=== PATIENT | female | born 1955 | race African-American/Black ===

== ENCOUNTER 2019-07-12 08:40 | Outpatient (CLI) | payer OTHER, SELFPAY ==
--- NOTE | ~2019-07-12 | MM_ITS ---
EXAMINATION: MM screening [facility] BI w hemant HISTORY: Screening mammogram TECHNIQUE: Craniocaudal and mediolateral oblique 3-D tomosynthesis images were obtained and synthetic 2-D images were generated. CAD analysis was submitted and interpreted. COMPARISON: Comparison to multiple prior studies sequentially, with oldest reviewed study dated 05/28. BREAST PARENCHYMAL COMPOSITION: There are scattered areas of fibroglandular density. FINDINGS: There is no evidence of suspicious mass, calcification, or architectural distortion to sugg est malignancy in either breast. There has been no suspicious interval change. IMPRESSION: 1. No mammographic evidence of malignancy. 2. Recommend routine screening mammography in one year. BI-RADS Category 1: Negative Reviewed, dictated and finalized at location A.
== END 2019-07-12 08:41 | disposition home or self-care (01) ==
LOC: ANHIMG 08:46
PROVIDERS: PCP Family Medicine Adolescent Medicine; Visit Provider Family Medicine Adolescent Medicine
DX: Z12.31 Encounter for screening mammogram for malignant neoplasm of breast (principal)
CPT/HCPCS: 77063; 77067

== ENCOUNTER 2020-07-11 09:01 | Outpatient (CLI) | payer OTHER, SELFPAY ==
--- NOTE | ~2020-07-11 | MM_ITS ---
EXAMINATION: MM screening [facility] BI w hemant HISTORY: Screening TECHNIQUE: Craniocaudal and mediolateral oblique 3-D tomosynthesis images were obtained and synthetic 2-D images were generated. CAD analysis was submitted and interpreted. COMPARISON: Comparison to multiple prior studies sequentially, with oldest reviewed study dated 05/28. BREAST PARENCHYMAL COMPOSITION: The breasts are heterogeneously dense, which may obscure small masses . FINDINGS: There is possible architectural distortion in the upper outer quadrant of the right breast, middle third. The left breast is stable without evidence for malignancy. IMPRESSION: 1. Possible new area of architectural distortion upper outer quadrant of the right breast, best seen on CC view. 2. Additional mammographic views and possible breast ultrasound are recommended. BI-RADS Category 0: Incomplete: Needs additional imaging evaluation. Reviewed, dictated and finalized at location A. IMPRESSION: 1. Possible new area of architectural distortion upper outer quadrant of the ri ght breast, best seen on CC view. 2. Additional mammographic views and possible breast ultrasound are recommended . BI-RADS Category 0: Incomplete: Needs additional imaging evaluation.
== END 2020-07-11 09:02 | disposition home or self-care (01) ==
PROVIDERS: PCP Family Medicine Adolescent Medicine; Visit Provider Family Medicine Adolescent Medicine
DX: Z12.31 Encounter for screening mammogram for malignant neoplasm of breast (principal); R92.8 Other abnormal and inconclusive findings on diagnostic imaging of breast
CPT/HCPCS: 77063; 77067

== ENCOUNTER 2020-08-14 11:33 | Outpatient (CLI) | payer OTHER, SELFPAY ==
--- NOTE | ~2020-08-14 | MMUS_ITS ---
EXAMINATION: MM diagnostic mammo unilat RT, US breast RT limited HISTORY: Possible right breast architectural distortion on screening mammogram TECHNIQUE: Additional 3-D tomosynthesis images of the right breast were performed and synthetic 2-D i mages were generated. CAD analysis was submitted and interpreted. High resolution limited right breas t ultrasound was performed. COMPARISON: 07/11/2020, 07/12/2019, 07/06/2018, 06/30/2017 BREAST PARENCHYMAL COMPOSITION: The breasts are heterogeneously dense, which may obscure small masses . FINDINGS: MAMMOGRAPHIC FINDINGS: There is a return to baseline glandular with spot compression of the upper outer quadrant of the righ t breast. No persistent architectural distortion is identified. ULTRASOUND: There is no evidence of focal abnormal solid or cystic mass in the vicinity of the mammographic findi ng in question. IMPRESSION: 1. No mammographic or sonographic evidence of malignancy. 2. Recommend routine screening mammography in one year. BI-RADS Category 1: Negative Reviewed, dictated and finalized at location A. IMPRESSION: 1. No mammographic or sonographic evidence of malignancy. 2. Recommend routine screening mammography in one year. BI-RADS Category 1: Negative
== END 2020-08-14 11:34 | disposition home or self-care (01) ==
PROVIDERS: PCP Family Medicine Adolescent Medicine; Visit Provider Family Medicine Adolescent Medicine
DX: R92.8 Other abnormal and inconclusive findings on diagnostic imaging of breast (principal)
CPT/HCPCS: 76642; 77065

== ENCOUNTER 2021-01-10 08:39 | Inpatient (IN) | payer OTHER, SELFPAY ==
[2021-01-10] VITALS (35 sets, daily range): BP systolic 90–115; BP diastolic 54–82; PULSE 72–100; RESP 18–35; TEMP 36.6–37.4; O2SAT 66–99; BMI 27.6
--- NOTE | ~2021-01-10 | XR_ITS ---
EXAMINATION: XR chest 2V EXAM DATE: 01/10/2021 10:32 INDICATION: Lethargic, weakness. TECHNIQUE: Frontal and lateral projections of the chest obtained and reviewed. There is no prior jennifer dy for comparison. FINDINGS: Diffuse bilateral airspace disease suspicious for COVID pneumonia. Other infectious etiolo gies, or edema also possible. There is cardiomegaly. No pneumothorax. No pleural effusion. There are no osseous abnormalities identified. IMPRESSION: Diffuse acute airspace disease, consistent with COVID pneumonia. Other infectious etiolog ies, or edema also possible. Reviewed, dictated and finalized at location B. IMPRESSION: Diffuse acute airspace disease, consistent with COVID pneumonia. Ot her infectious etiologies, or edema also possible.
--- NOTE | ~2021-01-10 | CT_ITS ---
EXAMINATION: CTA chest PE protocol EXAM DATE: 01/10/2021 10:20 INDICATION: Shortness of breath. Weakness. Pneumonia. TECHNIQUE: Spiral CTA of the chest (pulmonary arteries) was performed with 100 cc Omnipaque 350 intr avenous contrast injection. Images were acquired during the pulmonary arterial phase. Coronal maxi mum intensity projection 3D-reconstructions were created by the technologist on dedicated workstation . Axial, coronal and sagittal reformatted images were reviewed. The dose-length product (DLP) for t his examination was 274.48 mGy-cm. The exposure was tailored according to patient size (auto mA exp osure control), and iterative reconstruction (ASIR) was used as additional dose reduction technique. There is no prior study for comparison. FINDINGS: There are no pulmonary emboli in the 1st through 3rd order (central and interlobar) pulmon ying arteries. Some loss of attenuation in the segmental pulmonary arteries from respiratory motion, some segmental regions not confidently evaluated. No intraluminal filling defects identified. No th oracic aortic dissection. Bilateral patchy peripheral predominant groundglass opacities Appearance is typical of early stage C OVID 19 pneumonia. Less likely acute possibilities include influenza, pulmonary edema or hemorrhage. Some chronic processes that can have this appearance include cryptogenic organizing pneumonia, desqu amative interstitial pneumonia, nonspecific interstitial pneumonia, drug toxicity, connective tissue disease. Please clinically correlate and test as appropriate. There are no pleural or pericardial effusions. Tracheobronchial tree is patent. Mild hilar, preva scular lymphadenopathy probably reactive. There is no pneumothorax. Borderline cardiomegaly. No e vidence of coronary arterial calcification. Upper abdomen is unremarkable. There is thoracic spond ylosis without osteoblastic or osteolytic lesions identified. IMPRESSION: 1. Patchy bilateral groundglass airspace disease probably COVID 19 pneumonia given community prevale nce. Other possibilities above. 2. No central pulmonary emboli. Segmental arteries poorly evaluated. Reviewed, dictated and finalized at location B. IMPRESSION: 1. Patchy bilateral groundglass airspace disease probably COVID 19 pneumonia g iven community prevalence. Other possibilities above. 2. No central pulmonary emboli. Segmental arteries poorly evaluated.
--- NOTE | 2021-01-10 08:54 | ECG_ITS ---
Measurements Intervals [place] Rate: 95 P: 54 [place]: 143 QRS: 30 QRSD: 87 T: -13 QT: 358 QTc: 450 Interpretive Statements SINUS RHYTHM NONSPECIFIC ST & T-WAVE ABNORMALITY- ANTEROLAT/INF LEADS BASELINE ARTIFACT- I, II, III, AVR, AVL, AVF, V3-V6 BORDERLINE ECG Electronically Signed On 01-10-2021 9:15:32 CDT by Josh Garsia D.O.
--- NOTE | 2021-01-10 09:05 | PC.NURSE ---
Patient placed on 4L oxygen at time of arrival due to patient's oxygen stat at 78% on room air. After 4L oxygen patient is improved to 89%. Respiratory called at this time.
[2021-01-10 09:19] LABS: Basophils Percent Auto 0.1 % (0.2-1.2); Hematocrit 39.8 % (37.0-47.0); Immature Granulocyte Absolute 0.07 K/mm3 (0.00-0.031); Immature Granulocyte Percent A 0.9 % (0-0.5); Lymphocytes Absolute Auto 0.57 K/mm3 (0.9-3.2); Lymphocytes Percent Auto 7.5 % (18.3-44.2); Mean Corpuscular HGB Conc 32.7 g/dl (32-36); Mean Corpuscular Hemoglobin 26.1 pg (26-34); Mean Corpuscular Volume 79.8 fl (80-100); Mean Platelet Volume 10.6 fl (7.4-10.4); Monocytes Absolute Auto 0.4 K/mm3 (0.1-0.6); Monocytes Percent Auto 4.9 % (2.6-8.5); Neutrophils Absolute Auto 6.6 K/mm3 (1.3-6.7); Neutrophils Percent Auto 86.6 % (45.5-73.1); Platelet Count Result 332 k/mm3 (150-375); Red Blood Count 4.99 M/mm3 (4.2-5.4); Red Cell Distribution Width 14.4 % (11.5-14.5); White Blood Count 7.6 K/mm3 (4.5-10.0)
[2021-01-10 09:21] LABS: Alveolar/Arterial O2 Gradient 201.3 mmHg; Base Excess ABG 1.3 mEq/l (+/-2.0); Carboxyhemoglobin 0.4 % THb (0-2.0); Fractional Inspired Oxygen 40 %; HCO3 ABG 23.5 mEq/l (22.0-26.0); Methemoglobin ABG 0.4 %THb (0-1.5); Oxygen Content ABG 15.4 %vol (16.0-22.0); Oxygen Saturation ABG 89.1 % (95.0-100.0); Oxyhemoglobin 85.1 % THb (90.0-100.0); PCO2 ABG 29.9 mmHg (35.0-45.0); PO2 FiO2 Ratio Arterial Blood 1.24 %; Reduced Hemoglobin 14.1 %THb (0-5.0); Total Hemoglobin 12.9 g/dL (12.0-18.0)
[2021-01-10 09:22] LABS: Device NASAL CANNULA; Modified Allen's Test Pass; PO2 ABG 49.5 mmHg (80.0-100.0); Site Drawn LEFT RADIAL; pH ABG 7.513 (7.350-7.450)
[2021-01-10 09:28] LABS: Lactic Acid Reflex 2.2 mmol/L (0.7-2.1)
[2021-01-10 09:32] LABS: Prothrombin Time 12.6 Seconds (11.1-14.7)
[2021-01-10 09:35] LABS: D Dimer 1.16 ug/mL (<0.48)
[2021-01-10 09:36] LABS: Alanine Aminotransferase 42 U/L (4-35); Albumin Level 3.9 g/dL (3.5-5.1); Alkaline Phosphatase 76 U/L (38-126); Anion Gap 16 mmol/L (8-16); Aspartate Amino Transferase 70 U/L (14-36); Bilirubin,Total 0.8 mg/dL (0.2-1.3); Blood Urea Nitrogen 15 mg/dL (7-17); Calcium 8.5 mg/dL (8.4-10.2); Carbon Dioxide 22 mmol/L (22-30); Chloride 101 mmol/L (98-107); Estimated CRCL calculation 55 ml/min; Estimated Glomerular Filt Rate > 60; Glucose 134 mg/dL (65-110); Potassium 2.8 mmol/L (3.4-5.0); Sodium 139 mmol/L (137-145)
--- NOTE | 2021-01-10 09:46 | PC.NURSE ---
pt continues to deny pain or complaints.
[2021-01-10 10:09] LABS: Add Urine Microscopic? YES; Appearance Urine Clear (Clear); Bacteria Urine Trace /hpf; Bilirubin Urine Negative (Negative); Blood Urine Negative (Negative); Color Urine Yellow (Yellow); Glucose Urine UA Negative (Negative); Ketones Urine 1+ mg/dL (Negative); Leukocyte Esterase Ur Negative LEU/UL (Negative); Mucus Urine Rare /lpf; Nitrate Urine Negative (Negative); Protein Urine 2+ mg/dL (Negative); Specific Grav Ur 1.027 (1.001-1.035); Squamous Epithelial Cell Urine Rare /hpf (Few)
--- NOTE | 2021-01-10 10:53 | ED.WEAKNESS ---
HPI - Weakness General Chief complaint: Weakness Stated complaint: altered mental status Time Seen by Provider: 01/10/21 09:37 Source: patient and RN notes reviewed Mode of arrival: ambulatory Limitations: no limitations History of Present Illness HPI Narrative: Patient is 65 years old -Citizen Of [place] female lives with her son brought to the emergency room by her family because they noticed that the patient been weak, lethargic, sleeps longer hours over the last 7 days. Patient works at [employer], not vaccinated for COVID-19. Patient is DNR. Patient does not smoke or drink or uses drugs Related Data Allergies Allergy/AdvReac Type Severity Reaction Status Date / Time No Known Allergies Allergy Verified 01/10/21 09:06 Review of Systems Review of Systems: CONSTITUTIONAL: Denies fever, chills, or sweats. EYES: Denies visual changes, redness, or discharge. ENT: Denies rhinorrhea, congestion, sore throat, or otalgia. CARDIOVASCULAR: Denies chest pain, palpitations, or edema. RESPIRATORY: Denies cough or dyspnea. GASTROINTESTINAL: Denies abdominal pain, nausea, vomiting, or diarrhea. GENITOURINARY: Denies dysuria or hematuria. SKIN: Denies rash or itching. MUSCULOSKELETAL: Denies back pain, joint pain, or myalgia. NEUROLOGIC: Denies headache, numbness, or weakness. PSYCHIATRIC: Denies anxiety or depression. Exam Narrative: General appearance: Well-developed, well-nourished, hearing impairment Skin: Normal color Head: Normocephalic, nontraumatic Eyes: Clear conjunctiva ENT: Oropharynx normal, ears normal, nose normal Neck: Supple, nontender Chest and respiratory: Airway patent, no respiratory distress, no accessory muscle use Heart: Regular rate/rhythm Abdomen: Soft, nontender, no organomegaly, quiet bowel sounds Vascular: Normal peripheral pulses, normal capillary refill. Musculoskeletal: Normal range of motion, nontender back Neurologic: Alert and oriented ?3, [employer] is normal as tested, no gross motor deficit Course Course Emergency Course: Stable Vital Signs Vital signs: Vital Signs Temperature 36.6 C 01/10/21 08:48 Pulse Rate 100 01/10/21 08:48 Respiratory Rate 26 H 01/10/21 08:48 Blood Pressure 112/72 01/10/21 08:48 Pulse Oximetry 78 L 01/10/21 08:48 Temperature 36.6 C 01/10/21 08:48 Pulse Rate 100 01/10/21 08:48 Respiratory Rate 26 H 01/10/21 08:48 Blood Pressure 112/72 01/10/21 08:48 Pulse Oximetry 78 L 01/10/21 08:48 MDM - Weakness MDM Narrative Medical decision making narrative: Covid infection is my concern. Work-up showed elevated D-dimer, hypokalemia, lung infiltration bilaterally. Admission to telemetry, isolation ordered Differential Diagnosis Differential diagnosis: Likely dehydration and other (Pneumonia, urinary tract infection, electrolyte imbalance) Lab Data Result diagrams: 01/10/21 09:06 01/10/21 09:06 Labs: Lab Results 01/10/21 01/10/21 01/10/21 Range/Units 09:06 09:06 09:06 WBC 7.6 (4.5-10.0) K/mm3 RBC 4.99 (4.2-5.4) M/mm3 Hgb 13.0 (12.0-15.0) g/dL Hct 39.8 (37.0-47.0) % MCV 79.8 L (80-100) fl MCH 26.1 (26-34) pg MCHC 32.7 (32-36) g/dl RDW 14.4 (11.5-14.5) % Plt Count 332 (150-375) k/mm3 MPV 10.6 H (7.4-10.4) fl Immature Gran % (Auto) 0.9 H (0-0.5) % Neut % (Auto) 86.6 H (45.5-73.1) % Lymph % (Auto) 7.5 L (18.3-44.2) % Rankin % (Auto) 4.9 (2.6-8.5) % Eos % (Auto) 0.0 (0-4.4) % Baso % (Auto) 0.1 L (0.2-1.2) % Lymph # (Auto) 0.57 L (0.9-3.2) K/mm3 Rankin # (Auto) 0.4 (0.1-0.6) K/mm3 Eos # (Auto) 0.0 (0-0.3) K/mm3 Baso # (Auto) 0.0 (0.0-0.1) K/mm3 Abs
[2021-01-10 12:13] LABS: Reflex Lactic Acid Yes or No Add Lactic
[2021-01-10 16:25] LABS: Lactic Acid 1.4 mmol/L (0.7-2.1)
--- NOTE | 2021-01-10 18:28 | PC.NURSE ---
1810 PT RECEIVED TO ROOM AT 1630. ROOM ORIENTATION GIVEN
--- NOTE | 2021-01-10 18:35 | PM.IMHP ---
H&P: HPI History of Present Illness Date/Time: 01/10/21 18:35 this is a 65-year-old female patient who lives with her son she was brought to the emergency room today because they noticed that she was weak, lethargic and sleepy. This has occurred for the last 7 days. The patient is very hard of hearing and it is difficult to communicate with her as she forgot to bring her hearing aids with her. The patient works at [employer] and has not been vaccinated for COVID-19. The patient is listed as a DNR. Patient's potassium was noted to be 2.8. Lactic was 2.2 and is now 1.4. AST is slightly elevated to 70 and ALT 42. Arterial blood gases pH 7.513, CO2 29.9, PO2 49.5 O2 saturation 89.1. Chest x-ray was read as diffuse acute airspace disease consistent with COVID pneumonia. CTA was read as patchy bilateral ground-glass opacities probably COVID-19 pneumonia. No central pulmonary emboli segmental arteries poorly evaluated. The patient was started on a azithromycin Rocephin in the emergency room. Patient's COVID PCR is pending. It was very difficult to obtain information from the patient she did not bring her hearing aid. She tells me that she only has a history of high blood pressure and is taking blood pressure medicine. She has had no surgical history. Patient is being admitted to inpatient services on the date of service of 01/10/2021. Chief Complaint: Weakness and fatigue Review of Systems Review of Systems: All systems reviewed & are unremarkable except as noted in HPI and below Constitutional: Constitutional: Reports as per HPI and Reports no additional constitutional complaints Eyes: Eyes: Reports as per HPI and Reports no additional eye complaints ENT: Reports system reviewed and no additional complaints, except as documented and Reports Normal hearing present Cardiovascular: Cardiovascular: Reports no additional cardiovascular complaints Respiratory: Respiratory: Reports no additional respiratory complaints and Reports no additional respiratory complaints Gastrointestinal: Gastrointestinal: Reports as per HPI and Reports no additional gastrointestinal complaints Musculoskeletal: Musculoskeletal: Reports no additional musculoskeletal complaints Integumentary/Breasts: Skin/Breast: Reports system reviewed and no additional complaints, except as docu and Reports as per HPI Neurologic: Reports system reviewed and no additional complaints, except as documented, Reports as per HPI and Reports Normal hearing present Psychiatric: Psychiatric: Reports no additional psychiatric complaints and Reports as per HPI Endocrine: Endocrine: Reports no additional endocrine complaints Hematologic/Lymphatic: Hematologic/Lymphatic: Reports no additional hematologic/lymphatic complaints Allergic/Immunologic: Allergic/Immunologic: Reports no additional allergic/immunologic complaints [facility] Past Medical History Medical History (Updated 01/10/21 @ 18:55 by Alisa Valenzuela NP) Hypertension Surgical History Surgical History (Updated 01/10/21 @ 18:48 by Alisa Valenzuela NP) No pertinent past surgical history Family History Family History (Updated 01/10/21 @ 18:50 by Alisa Valenzuela NP) Father Leukemia Mother Heart disease Social History Social History (Updated 01/10/21 @ 18:50 by Alisa Valenzuela NP) Social History: The patient lives with her son and she states the son is a durable power trust and estates attorney for healthcare. The patient is listed as a DNR. She has 2 children. She currently works at [employer]. She is a former smoker. She said she used to drink alcohol but she does not anymore. She is listed as single. Smoking packs per day: 2 Smoking cigarettes per day: 40.0 Years smoked: 20 Smoking pack-years: 40.00 Smoking status: Former smoker Tobacco type: cigarettes Alcohol intake: never Substance use: never Spiritual care concerns: No Meds Home Medications and Allergies Home Medications Medication
[2021-01-10 19:44] LABS: Alanine Aminotransferase 40 U/L (4-35); Estimated CRCL calculation 69 ml/min; Estimated Glomerular Filt Rate > 60
[2021-01-10 19:47] LABS: Anion Gap 11 mmol/L (8-16); Blood Urea Nitrogen 12 mg/dL (7-17); Calcium 8.3 mg/dL (8.4-10.2); Carbon Dioxide 25 mmol/L (22-30); Chloride 102 mmol/L (98-107); Estimated CRCL calculation 69 ml/min; Estimated Glomerular Filt Rate > 60; Glucose 143 mg/dL (65-110); Potassium 2.7 mmol/L (3.4-5.0); Sodium 138 mmol/L (137-145)
[2021-01-10] MEDS: POTASSIUM CHLORIDE 20 MEQ TABLET 40 MEQ PO (20:17)
[2021-01-10 20:30] LABS: INR 0.9; Prothrombin Time 12.1 Seconds (11.1-14.7)
[2021-01-10 22:41] LABS: SARS-CoV-2 RNA PCR Positive
[2021-01-11] VITALS (20 sets, daily range): BP systolic 93–116; BP diastolic 50–69; PULSE 57–87; RESP 18–32; TEMP 36.4–37.7; O2SAT 89–100
--- NOTE | 2021-01-11 01:04 | PC.NURSE ---
This patient, Courtney Page, was received from [facility] on 01/11/21 at 0045. Patient/family oriented to unit policies and routines
--- NOTE | 2021-01-11 01:48 | PC.NURSE ---
Patient was on 4L sating 71% at 1952. Increased oxygen to 10L, oxygen did improve to 91% and patient was turned on her right side. Notified Alisa Valenzuela of pt. increase oxygen needed. Rechecked pt. oxygen at 1220 and oxygen was 83%. Increased oxygen to 15L high flow nasal canula. Oxygen saturation only improved to 84%. Placed a non-rebreather on the pt. and did maximo her oxygen to 91%. Notified Alisa Valenzuela and orders were to transfer the pt. to imu with possibility of airvo. Report was given. Sister was notified of pt. status. When talking to the pt. about her wishes to be a DNR. Pt. then said she would like us to do everything possible to keep her alive. Educated pt. on what that a full code status was, Carri Casanova was present.
[2021-01-11] MEDS: REMDESIVIR 200 MG/NS 250 ML 200 MG/250 ML BAG 250 MG IVPB (01:55)
[2021-01-11 02:08] LABS: Alanine Aminotransferase 37 U/L (4-35); Estimated CRCL calculation 69 ml/min; Estimated Glomerular Filt Rate > 60
[2021-01-11 02:11] LABS: INR 0.9; Prothrombin Time 12.3 Seconds (11.1-14.7)
[2021-01-11] MEDS: amLODIPine BESYLATE 5 MG TABLET 10 MG PO (08:43)
[2021-01-11] MEDS: ENOXAPARIN 40 MG/0.4 ML SYRINGE SUB-Q (08:43)
[2021-01-11 08:52] LABS: Basophils Percent Auto 0.2 % (0.2-1.2); Eosinophils Absolute Auto 0.1 K/mm3 (0-0.3); Eosinophils Percent Auto 1.9 % (0-4.4); Hematocrit 33.1 % (37.0-47.0); Hemoglobin 10.5 g/dL (12.0-15.0); Immature Granulocyte Absolute 0.07 K/mm3 (0.00-0.031); Immature Granulocyte Percent A 1.5 % (0-0.5); Lymphocytes Absolute Auto 0.77 K/mm3 (0.9-3.2); Lymphocytes Percent Auto 16.1 % (18.3-44.2); Mean Corpuscular HGB Conc 31.7 g/dl (32-36); Mean Corpuscular Hemoglobin 25.1 pg (26-34); Mean Platelet Volume 10.5 fl (7.4-10.4); Monocytes Absolute Auto 0.2 K/mm3 (0.1-0.6); Monocytes Percent Auto 4.4 % (2.6-8.5); Neutrophils Absolute Auto 3.6 K/mm3 (1.3-6.7); Neutrophils Percent Auto 75.9 % (45.5-73.1); Platelet Count Result 329 k/mm3 (150-375); Red Blood Count 4.19 M/mm3 (4.2-5.4); Red Cell Distribution Width 14.4 % (11.5-14.5); White Blood Count 4.8 K/mm3 (4.5-10.0)
[2021-01-11 09:07] LABS: Lactic Acid Reflex 0.9 mmol/L (0.7-2.1)
[2021-01-11 09:21] LABS: Prothrombin Time 12.8 Seconds (11.1-14.7)
[2021-01-11 09:28] LABS: Alanine Aminotransferase 33 U/L (4-35); Anion Gap 9 mmol/L (8-16); Blood Urea Nitrogen 9 mg/dL (7-17); CRP 6.8 mg/dL (<1.0); Calcium 8.3 mg/dL (8.4-10.2); Carbon Dioxide 26 mmol/L (22-30); Chloride 103 mmol/L (98-107); Estimated CRCL calculation 79 ml/min; Estimated Glomerular Filt Rate > 60; Glucose 136 mg/dL (65-110); Lactate Dehydrogenase 1516 U/L (313-618); Magnesium 2.2 mg/dL (1.6-2.3); Potassium 3.8 mmol/L (3.4-5.0); Sodium 138 mmol/L (137-145)
[2021-01-11 11:02] LABS: Hypochromasia 1+ (NORMAL); Platelet Estimate Adequate (Adequate)
[2021-01-11 11:03] LABS: Anisocytosis 1+ (NORMAL); Poikilocytosis 1+ (NORMAL)
--- NOTE | 2021-01-11 16:08 | PM.IMPN ---
Progress Note: A&P Assessment and Plan (1) Pneumonia: Qualifiers: Laterality: bilateral Lung location: lower lobe of lung Pneumonia type: due to unspecified organism Qualified Code(s): J18.9 - Pneumonia, unspecified organism Code(s): J18.9 - Pneumonia, unspecified organism Status: Acute Assessment and Plan: azithromycin Rocephin. COVID-19 positive Albuterol inhaler in oxygen as required. DNR does not want to be placed on a ventilator. Blood cultures no growth today Supportive care (2) Suspected COVID-19 virus infection: Code(s): Z20.822 - Contact with and (suspected) exposure to COVID-19 Status: Acute Assessment and Plan: contact and droplet isolation. Decadron and remdesivir Consider tocilizumab once Airvo and supplemental oxygen Wean supplemental oxygen to maintain O2 saturation >92% Albuterol nebs (3) Hypertension: Code(s): I10 - Essential (primary) hypertension Status: Chronic Assessment and Plan: Current blood pressure 105/53 Continue home medication of amlodipine Trend blood pressure Adjust medications as needed (4) Acute hypokalemia: Code(s): E87.6 - Hypokalemia Status: Acute Assessment and Plan: Potassium on arrival was 2.8 Patient given supplemental potassium Repeat potassium 4.0 Replace as needed Trend potassium Subjective Date/time seen: 01/11/21 16:08 Interval history: Patient is a 65-year-old female who is here for COVID-19. Patient seemed a little lethargic today upon interview. However patient said she was doing fine. Patient denies having a lack of appetite and this stating she is hungry. Patient denies chest pain and shortness of breath. I was able to titrate patient down a little bit however shortly after she was titrated back up. Nursing reported the patient was satting 97% on 30 L and 70%. Patient is extremely hard of hearing and would not answer a lot of questions due to that. She does seem comfortable in bed with no work of breathing noted. Review of Systems Review of Systems: All systems reviewed & are unremarkable except as noted in HPI and below Exam Const: General: cooperative, comfortable, no acute distress, well developed and ill appearing Orientation/consciousness: oriented to person and oriented to place Other: Very lethargic HENMT: Head: normal to inspection, No palpable skull fracture present, normocephalic and atraumatic Ears: external ears normal and hearing grossly impaired General nose exam: Normal external nose present and Normal nares present Eyes: General: appearance normal, both eyes and all related structures Alignment and Position: alignment normal Periorbital: periorbital findings normal Eyelids: eyelids normal Conjunctivae: conjunctivae normal Sclera: sclerae normal Cornea: corneas normal Pupils: Equal, round and reactive pupils present EOM: EOMs intact bilaterally Neck: Neck: normal visual inspection, full ROM and supple Chest: Chest palpation & inspection: normal inspection of the chest Resp: Effort & Inspection: normal respiratory effort Auscultation: diminished lung sounds Percussion: percussion normal Cardio: Palpation: normal PMI Rate: regular rate Rhythm: regular rhythm Heart sounds: S1 normal heart sound present and S2 normal heart sound present Peripheral pulses: Peripheral pulses 2+ throughout GI: Inspection: normal to inspection Auscultation: normal bowel sounds Rectal Exam: deferred Skin: General skin exam: normal color Lesions: no lesions Rashes: no rashes Trauma: no lacerations or abrasions Wounds: no wounds Hair: normal Nails: normal Neuro: General: oriented to person and oriented to place Cranial nerves: Yes Equal, round and reactive pupils present and Yes hard of hearing Cognition (Neuro): normal cognition Speech: normal speech Extrem: General: normal to inspection Right up
[2021-01-11] MEDS: REMDESIVIR 100 MG/NS 250 ML 100 MG/250 ML BAG 250 MG IVPB (21:23)
[2021-01-12] VITALS (21 sets, daily range): BP systolic 92–110; BP diastolic 52–75; PULSE 50–77; RESP 18–24; TEMP 36.1–37.1; O2SAT 87–98
[2021-01-12 06:15] LABS: Basophils Percent Auto 0.2 % (0.2-1.2); Eosinophils Percent Auto 0.2 % (0-4.4); Immature Granulocyte Percent A 2.2 % (0-0.5); Lymphocytes Absolute Auto 0.77 K/mm3 (0.9-3.2); Lymphocytes Percent Auto 16.6 % (18.3-44.2); Mean Corpuscular HGB Conc 32.4 g/dl (32-36); Mean Corpuscular Hemoglobin 25.6 pg (26-34); Mean Corpuscular Volume 78.9 fl (80-100); Mean Platelet Volume 10.5 fl (7.4-10.4); Monocytes Absolute Auto 0.3 K/mm3 (0.1-0.6); Monocytes Percent Auto 7.1 % (2.6-8.5); Neutrophils Absolute Auto 3.4 K/mm3 (1.3-6.7); Neutrophils Percent Auto 73.7 % (45.5-73.1); Platelet Count Result 396 k/mm3 (150-375); Red Blood Count 4.69 M/mm3 (4.2-5.4); Red Cell Distribution Width 14.2 % (11.5-14.5); White Blood Count 4.7 K/mm3 (4.5-10.0)
[2021-01-12 06:23] LABS: INR 1.1; Prothrombin Time 13.8 Seconds (11.1-14.7)
[2021-01-12 06:42] LABS: Alanine Aminotransferase 34 U/L (4-35); Albumin Level 3.3 g/dL (3.5-5.1); Alkaline Phosphatase 64 U/L (38-126); Anion Gap 8 mmol/L (8-16); Aspartate Amino Transferase 37 U/L (14-36); Bilirubin,Total 0.4 mg/dL (0.2-1.3); Blood Urea Nitrogen 13 mg/dL (7-17); Calcium 8.7 mg/dL (8.4-10.2); Carbon Dioxide 28 mmol/L (22-30); Chloride 105 mmol/L (98-107); Estimated CRCL calculation 79 ml/min; Estimated Glomerular Filt Rate > 60; Glucose 125 mg/dL (65-110); Magnesium 2.3 mg/dL (1.6-2.3); Potassium 3.6 mmol/L (3.4-5.0); Sodium 141 mmol/L (137-145)
[2021-01-12] MEDS: ENOXAPARIN 40 MG/0.4 ML SYRINGE SUB-Q (08:28)
[2021-01-12] MEDS: amLODIPine BESYLATE 5 MG TABLET 10 MG PO (08:28)
--- NOTE | 2021-01-12 10:17 | PM.IMPN ---
Progress Note: A&P Assessment and Plan (1) Pneumonia: Qualifiers: Laterality: bilateral Lung location: lower lobe of lung Pneumonia type: due to unspecified organism Qualified Code(s): J18.9 - Pneumonia, unspecified organism Code(s): J18.9 - Pneumonia, unspecified organism Status: Acute Assessment and Plan: azithromycin Rocephin continued at this time COVID-19 positive Albuterol inhaler in oxygen as required. She stated today that she wanted everything done if needed Blood cultures no growth today Supportive care encouraged prone position Inflammatory labs elevated LDH 1516, CRP 6.8 PT/OT (2) Suspected COVID-19 virus infection: Code(s): Z20.822 - Contact with and (suspected) exposure to COVID-19 Status: Acute Assessment and Plan: contact and droplet isolation. Decadron and remdesivir tocilizumab given 01/11/21 Airvo and supplemental oxygen Wean supplemental oxygen to maintain O2 saturation >92% Albuterol nebs (3) Hypertension: Code(s): I10 - Essential (primary) hypertension Status: Chronic Assessment and Plan: Current blood pressure 110/60 Continue home medication of amlodipine Trend blood pressure Adjust medications as needed (4) Acute hypokalemia: Code(s): E87.6 - Hypokalemia Status: Acute Assessment and Plan: Potassium on arrival was 2.8 Patient given supplemental potassium Potassium today 3.6 Replace as needed Trend potassium Subjective Date/time seen: 01/12/21 07:15 Interval history: Patient is a 65 year old female who is here for COVID 19. She stated that she feels great today. Talked to her about getting up out of bed. She stated that she would like. She denies chest pain, shortness of breath, nausea, vomiting, weakness, fatigue, fevers, sweats, or chills. She was alert and up this morning upon arrival. She also looks good as well. She denies any work of breathing. Review of Systems Review of Systems: All systems reviewed & are unremarkable except as noted in HPI and below Exam Const: General: cooperative, comfortable, no acute distress and well developed Orientation/consciousness: oriented to person and oriented to place Other: Very lethargic HENMT: Head: normal to inspection, No palpable skull fracture present, normocephalic and atraumatic Ears: external ears normal and hearing grossly impaired General nose exam: Normal external nose present and Normal nares present Eyes: General: appearance normal, both eyes and all related structures Alignment and Position: alignment normal Periorbital: periorbital findings normal Eyelids: eyelids normal Conjunctivae: conjunctivae normal Sclera: sclerae normal Cornea: corneas normal Pupils: Equal, round and reactive pupils present EOM: EOMs intact bilaterally Neck: Neck: normal visual inspection, full ROM and supple Chest: Chest palpation & inspection: normal inspection of the chest Resp: Effort & Inspection: normal respiratory effort Auscultation: diminished lung sounds Percussion: percussion normal Cardio: Palpation: normal PMI Rate: regular rate Rhythm: regular rhythm Heart sounds: S1 normal heart sound present and S2 normal heart sound present Peripheral pulses: Peripheral pulses 2+ throughout GI: Inspection: normal to inspection Auscultation: normal bowel sounds Rectal Exam: deferred Skin: General skin exam: normal color Lesions: no lesions Rashes: no rashes Trauma: no lacerations or abrasions Wounds: no wounds Hair: normal Nails: normal Neuro: General: oriented to person and oriented to place Cranial nerves: Yes Equal, round and reactive pupils present and Yes hard of hearing Cognition (Neuro): normal cognition Speech: normal speech Extrem: General: normal to inspection Right upper extremity: normal to inspection Left upper extremity: normal to inspection Right lower extremity: no
[2021-01-12 12:37] LABS: Platelet Estimate Adequate (Adequate)
[2021-01-12 12:39] LABS: Poikilocytosis 1+ (NORMAL); Schistocytes 1+ (NORMAL)
[2021-01-12] MEDS: REMDESIVIR 100 MG/NS 250 ML 100 MG/250 ML BAG 250 MG IVPB (21:39)
[2021-01-13] VITALS (19 sets, daily range): BP systolic 92–117; BP diastolic 50–64; PULSE 48–75; RESP 20–23; TEMP 35.6–36.4; O2SAT 92–100
[2021-01-13 06:04] LABS: Basophils Percent Auto 0.4 % (0.2-1.2); Eosinophils Percent Auto 0.1 % (0-4.4); Hematocrit 42.7 % (37.0-47.0); Immature Granulocyte Absolute 0.23 K/mm3 (0.00-0.031); Immature Granulocyte Percent A 3.2 % (0-0.5); Lymphocytes Absolute Auto 1.04 K/mm3 (0.9-3.2); Lymphocytes Percent Auto 14.5 % (18.3-44.2); Mean Corpuscular HGB Conc 32.8 g/dl (32-36); Mean Corpuscular Hemoglobin 25.5 pg (26-34); Mean Corpuscular Volume 77.6 fl (80-100); Mean Platelet Volume 9.8 fl (7.4-10.4); Monocytes Absolute Auto 0.5 K/mm3 (0.1-0.6); Monocytes Percent Auto 6.3 % (2.6-8.5); Neutrophils Absolute Auto 5.4 K/mm3 (1.3-6.7); Neutrophils Percent Auto 75.5 % (45.5-73.1); Platelet Count Result 493 k/mm3 (150-375); Red Cell Distribution Width 14.3 % (11.5-14.5); White Blood Count 7.2 K/mm3 (4.5-10.0)
[2021-01-13 06:14] LABS: INR 1.1; Prothrombin Time 13.6 Seconds (11.1-14.7)
[2021-01-13 06:15] LABS: Alanine Aminotransferase 34 U/L (4-35); Albumin Level 3.5 g/dL (3.5-5.1); Alkaline Phosphatase 69 U/L (38-126); Anion Gap 8 mmol/L (8-16); Aspartate Amino Transferase 36 U/L (14-36); Bilirubin,Total 0.5 mg/dL (0.2-1.3); Blood Urea Nitrogen 18 mg/dL (7-17); Calcium 8.8 mg/dL (8.4-10.2); Carbon Dioxide 29 mmol/L (22-30); Chloride 104 mmol/L (98-107); Estimated CRCL calculation 79 ml/min; Estimated Glomerular Filt Rate > 60; Glucose 145 mg/dL (65-110); Magnesium 2.3 mg/dL (1.6-2.3); Potassium 3.7 mmol/L (3.4-5.0); Sodium 141 mmol/L (137-145)
[2021-01-13] MEDS: ENOXAPARIN 40 MG/0.4 ML SYRINGE SUB-Q (09:08)
--- NOTE | 2021-01-13 15:52 | PM.IMPN ---
Progress Note: A&P Assessment and Plan (1) Suspected COVID-19 virus infection: Code(s): Z20.822 - Contact with and (suspected) exposure to COVID-19 Status: Acute Assessment and Plan: COVID-19 positive Albuterol inhaler and oxygen supplementation as required. contact and droplet isolation. Decadron and remdesivir tocilizumab given 01/11/21 Airvo and supplemental oxygen as needed. Patient is a FULL CODE Blood cultures no growth to date. Supportive care PT/OT (2) Hypertension: Code(s): I10 - Essential (primary) hypertension Status: Chronic Assessment and Plan: Current blood pressure 93/60 hold bP meds while hypotensive Given acute ilness target BP goal of 140/90 (3) Pneumonia: Qualifiers: Laterality: bilateral Lung location: lower lobe of lung Pneumonia type: due to unspecified organism Qualified Code(s): J18.9 - Pneumonia, unspecified organism Code(s): J18.9 - Pneumonia, unspecified organism Status: Acute Assessment and Plan: Community acquired pneumonia Azithromycin and Rocephin continued at this time. Acute respiratory failure requiring oxygeb high flow (4) Acute hypokalemia: Code(s): E87.6 - Hypokalemia Status: Acute Assessment and Plan: Resolved with supplementation. K is Additional Plan DVT prophylaxis Lovenox 40 mg SC daily. Time Spent With Patient Time with patient: 15 - 25 minutes Subjective Date/time seen: 01/13/21 15:52 Interval history: This is a 65-year-old female patient admitted with weakness, lethargy, excessive sleepiness who was diagnosed with COVID19 pneumonia on 01/10/2021. She was treated with remdesivir and decadron. Her hypokalemia was supplemented. Review of Systems Review of Systems: All systems reviewed & are unremarkable except as noted in HPI and below Constitutional: Constitutional: Reports as per HPI and Reports no additional constitutional complaints Eyes: Eyes: Reports as per HPI and Reports no additional eye complaints ENT: Reports system reviewed and no additional complaints, except as documented Cardiovascular: Cardiovascular: Reports no additional cardiovascular complaints Respiratory: Respiratory: Reports no additional respiratory complaints and Reports no additional respiratory complaints Gastrointestinal: Gastrointestinal: Reports as per HPI and Reports no additional gastrointestinal complaints Musculoskeletal: Musculoskeletal: Reports no additional musculoskeletal complaints Integumentary/Breasts: Skin/Breast: Reports system reviewed and no additional complaints, except as docu and Reports as per HPI Neurologic: Reports system reviewed and no additional complaints, except as documented and Reports as per HPI Psychiatric: Psychiatric: Reports no additional psychiatric complaints and Reports as per HPI Endocrine: Endocrine: Reports no additional endocrine complaints Hematologic/Lymphatic: Hematologic/Lymphatic: Reports no additional hematologic/lymphatic complaints Allergic/Immunologic: Allergic/Immunologic: Reports no additional allergic/immunologic complaints Exam Const: General: cooperative, comfortable, no acute distress, well developed and ill appearing Orientation/consciousness: oriented to person and oriented to place Other: She is awake, alert and eating with appetite. HENMT: Head: normal to inspection, No palpable skull fracture present, normocephalic and atraumatic Ears: external ears normal and hearing grossly impaired General nose exam: Normal external nose present and Normal nares present Eyes: General: appearance normal, both eyes and all related structures Alignment and Position: alignment normal Periorbital: periorbital findings normal Eyelids: eyelids normal Conjunctivae: conjunctivae normal Sclera: sclerae normal Cornea: corneas normal Pupils: Equal, round and reactive pupils present EOM: EOMs intact bilaterally Neck: Neck: normal visual in
[2021-01-13] MEDS: REMDESIVIR 100 MG/NS 250 ML 100 MG/250 ML BAG 250 MG IVPB (20:40)
[2021-01-14] VITALS (16 sets, daily range): BP systolic 88–125; BP diastolic 55–73; PULSE 46–90; RESP 18–22; TEMP 36.1–37; O2SAT 92–100
[2021-01-14 06:22] LABS: INR 1.1; Prothrombin Time 14.3 Seconds (11.1-14.7)
[2021-01-14 06:24] LABS: Alanine Aminotransferase 34 U/L (4-35); Estimated CRCL calculation 79 ml/min; Estimated Glomerular Filt Rate > 60
[2021-01-14] MEDS: amLODIPine BESYLATE 5 MG TABLET 10 MG PO (09:59)
[2021-01-14] MEDS: ENOXAPARIN 40 MG/0.4 ML SYRINGE SUB-Q (09:59)
--- NOTE | 2021-01-14 15:07 | PM.IMPN ---
Progress Note: A&P Assessment and Plan (1) Suspected COVID-19 virus infection: Code(s): Z20.822 - Contact with and (suspected) exposure to COVID-19 Status: Acute Assessment and Plan: COVID-19 positive continue to require high flow oxygen 50 liters per minute. Albuterol inhaler and oxygen supplementation as required. contact and droplet isolation. Decadron and remdesivir tocilizumab given 01/11/21 Airvo and supplemental oxygen as needed. Patient is a FULL CODE Blood cultures no growth to date. Supportive care PT/OT (2) Hypertension: Code(s): I10 - Essential (primary) hypertension Status: Chronic Assessment and Plan: Current blood pressure 93/60 hold BP meds while hypotensive Given acute ilness target BP goal of 140/90 (3) Pneumonia: Qualifiers: Laterality: bilateral Lung location: lower lobe of lung Pneumonia type: due to unspecified organism Qualified Code(s): J18.9 - Pneumonia, unspecified organism Code(s): J18.9 - Pneumonia, unspecified organism Status: Acute Assessment and Plan: Community acquired pneumonia Azithromycin and Rocephin continued at this time. Acute respiratory failure requiring oxygen high flow (4) Acute hypokalemia: Code(s): E87.6 - Hypokalemia Status: Acute Assessment and Plan: Resolved with supplementation. K is 3.7. Additional Plan DVT prophylaxis Lovenox 40 mg SC daily. Subjective Date/time seen: 01/14/21 15:07 Interval history: This is a 65-year-old lady admitted with weakness, lethargy, excessive sleepiness who was diagnosed with COVID19 pneumonia on 01/10/2021. She was treated with remdesivir and decadron. Her hypokalemia was supplemented. She has been doing a lot better. Appetite is good and sleep is adequate. Review of Systems Review of Systems: All systems reviewed & are unremarkable except as noted in HPI and below Constitutional: Constitutional: Reports as per HPI and Reports no additional constitutional complaints Eyes: Eyes: Reports as per HPI and Reports no additional eye complaints ENT: Reports system reviewed and no additional complaints, except as documented Cardiovascular: Cardiovascular: Reports no additional cardiovascular complaints Respiratory: Respiratory: Reports no additional respiratory complaints and Reports no additional respiratory complaints Gastrointestinal: Gastrointestinal: Reports as per HPI and Reports no additional gastrointestinal complaints Musculoskeletal: Musculoskeletal: Reports no additional musculoskeletal complaints Integumentary/Breasts: Skin/Breast: Reports system reviewed and no additional complaints, except as docu and Reports as per HPI Neurologic: Reports system reviewed and no additional complaints, except as documented and Reports as per HPI Psychiatric: Psychiatric: Reports no additional psychiatric complaints and Reports as per HPI Endocrine: Endocrine: Reports no additional endocrine complaints Hematologic/Lymphatic: Hematologic/Lymphatic: Reports no additional hematologic/lymphatic complaints Allergic/Immunologic: Allergic/Immunologic: Reports no additional allergic/immunologic complaints Exam Const: General: cooperative, comfortable, no acute distress, well developed and ill appearing Orientation/consciousness: oriented to person and oriented to place Other: She is awake, alert and eating with appetite. HENMT: Head: normal to inspection, No palpable skull fracture present, normocephalic and atraumatic Ears: external ears normal and hearing grossly impaired General nose exam: Normal external nose present and Normal nares present Eyes: General: appearance normal, both eyes and all related structures Alignment and Position: alignment normal Periorbital: periorbital findings normal Eyelids: eyelids normal Conjunctivae: conjunctivae normal Sclera: sclerae normal Cornea: corneas normal Pupils: Equal, round and reactive pupils
[2021-01-14] MEDS: REMDESIVIR 100 MG/NS 250 ML 100 MG/250 ML BAG 250 MG IVPB (21:32)
[2021-01-15] VITALS (17 sets, daily range): BP systolic 89–123; BP diastolic 48–69; PULSE 46–80; RESP 15–20; TEMP 35.6–36.6; O2SAT 95–100
[2021-01-15 05:00] LABS: Basophils Percent Auto 0.2 % (0.2-1.2); Eosinophils Percent Auto 0.3 % (0-4.4); Hematocrit 35.6 % (37.0-47.0); Hemoglobin 11.2 g/dL (12.0-15.0); Immature Granulocyte Absolute 0.38 K/mm3 (0.00-0.031); Immature Granulocyte Percent A 3.9 % (0-0.5); Lymphocytes Absolute Auto 1.21 K/mm3 (0.9-3.2); Lymphocytes Percent Auto 12.5 % (18.3-44.2); Mean Corpuscular HGB Conc 31.5 g/dl (32-36); Mean Corpuscular Hemoglobin 25.3 pg (26-34); Mean Corpuscular Volume 80.5 fl (80-100); Mean Platelet Volume 9.9 fl (7.4-10.4); Monocytes Absolute Auto 0.7 K/mm3 (0.1-0.6); Monocytes Percent Auto 7.2 % (2.6-8.5); Neutrophils Absolute Auto 7.4 K/mm3 (1.3-6.7); Neutrophils Percent Auto 75.9 % (45.5-73.1); Platelet Count Result 467 k/mm3 (150-375); Red Blood Count 4.42 M/mm3 (4.2-5.4); Red Cell Distribution Width 14.3 % (11.5-14.5); White Blood Count 9.7 K/mm3 (4.5-10.0)
[2021-01-15 05:12] LABS: INR 1.1; Prothrombin Time 14.3 Seconds (11.1-14.7)
[2021-01-15 05:14] LABS: Alanine Aminotransferase 48 U/L (4-35); Anion Gap 6 mmol/L (8-16); Blood Urea Nitrogen 17 mg/dL (7-17); CRP 1.9 mg/dL (<1.0); Calcium 8.3 mg/dL (8.4-10.2); Carbon Dioxide 28 mmol/L (22-30); Chloride 104 mmol/L (98-107); Estimated CRCL calculation 79 ml/min; Estimated Glomerular Filt Rate > 60; Glucose 238 mg/dL (65-110); Lactate Dehydrogenase 860 U/L (313-618); Potassium 3.9 mmol/L (3.4-5.0); Sodium 138 mmol/L (137-145)
[2021-01-15] MEDS: amLODIPine BESYLATE 5 MG TABLET 10 MG PO (09:49)
[2021-01-15] MEDS: ENOXAPARIN 40 MG/0.4 ML SYRINGE SUB-Q (09:50)
--- NOTE | 2021-01-15 17:07 | PM.IMPN ---
Progress Note: A&P Assessment and Plan (1) Suspected COVID-19 virus infection: Code(s): Z20.822 - Contact with and (suspected) exposure to COVID-19 Status: Acute Assessment and Plan: COVID-19 positive continue to require high flow oxygen 40 liters per minute. Albuterol inhaler and oxygen supplementation as required. contact and droplet isolation. Decadron and remdesivir tocilizumab given 01/11/21 Airvo and supplemental oxygen as needed. Patient is a FULL CODE Blood cultures no growth to date. Supportive care PT/OT (2) Hypertension: Code(s): I10 - Essential (primary) hypertension Status: Chronic Assessment and Plan: Current blood pressure 89/48 hold BP meds while hypotensive Given acute illness target BP goal of 140/90 (3) Pneumonia: Qualifiers: Laterality: bilateral Lung location: lower lobe of lung Pneumonia type: due to unspecified organism Qualified Code(s): J18.9 - Pneumonia, unspecified organism Code(s): J18.9 - Pneumonia, unspecified organism Status: Acute Assessment and Plan: Community acquired pneumonia Azithromycin and Rocephin continued at this time. Acute respiratory failure requiring oxygen high flow (4) Acute hypokalemia: Code(s): E87.6 - Hypokalemia Status: Acute Assessment and Plan: Resolved with supplementation. K is 3.9. Additional Plan DVT prophylaxis Lovenox 40 mg SC daily. Subjective Date/time seen: 01/15/21 17:07 Interval history: This is a 65-year-old lady admitted with weakness, lethargy, excessive sleepiness who was diagnosed with COVID19 pneumonia on 01/10/2021. She was treated with remdesivir and decadron. She has been doing a lot better. Appetite is good and sleep is adequate. Oxygen requirements remain very high at 40 liters per minute. Review of Systems Review of Systems: All systems reviewed & are unremarkable except as noted in HPI and below Constitutional: Constitutional: Reports as per HPI and Reports no additional constitutional complaints Eyes: Eyes: Reports as per HPI and Reports no additional eye complaints ENT: Reports system reviewed and no additional complaints, except as documented Cardiovascular: Cardiovascular: Reports no additional cardiovascular complaints Respiratory: Respiratory: Reports no additional respiratory complaints and Reports no additional respiratory complaints Gastrointestinal: Gastrointestinal: Reports as per HPI and Reports no additional gastrointestinal complaints Musculoskeletal: Musculoskeletal: Reports no additional musculoskeletal complaints Integumentary/Breasts: Skin/Breast: Reports system reviewed and no additional complaints, except as docu and Reports as per HPI Neurologic: Reports system reviewed and no additional complaints, except as documented and Reports as per HPI Psychiatric: Psychiatric: Reports no additional psychiatric complaints and Reports as per HPI Endocrine: Endocrine: Reports no additional endocrine complaints Hematologic/Lymphatic: Hematologic/Lymphatic: Reports no additional hematologic/lymphatic complaints Allergic/Immunologic: Allergic/Immunologic: Reports no additional allergic/immunologic complaints Exam Const: General: cooperative, comfortable, no acute distress, well developed and ill appearing Orientation/consciousness: oriented to person and oriented to place Other: She is awake, alert and eating with appetite. HENMT: Head: normal to inspection, No palpable skull fracture present, normocephalic and atraumatic Ears: external ears normal and hearing grossly impaired General nose exam: Normal external nose present and Normal nares present Eyes: General: appearance normal, both eyes and all related structures Alignment and Position: alignment normal Periorbital: periorbital findings normal Eyelids: eyelids normal Conjunctivae: conjunctivae normal Sclera: sclerae normal Cornea: corneas normal Pupils: Equ
[2021-01-16] VITALS (8 sets, daily range): BP systolic 106–135; BP diastolic 62–81; PULSE 44–70; RESP 18–20; TEMP 36.6–36.8; O2SAT 93–100
[2021-01-16 05:04] LABS: Basophils Percent Auto 0.3 % (0.2-1.2); Eosinophils Percent Auto 0.2 % (0-4.4); Hemoglobin 11.5 g/dL (12.0-15.0); Immature Granulocyte Absolute 0.51 K/mm3 (0.00-0.031); Immature Granulocyte Percent A 4.1 % (0-0.5); Lymphocytes Absolute Auto 1.25 K/mm3 (0.9-3.2); Lymphocytes Percent Auto 10.1 % (18.3-44.2); Mean Corpuscular HGB Conc 31.9 g/dl (32-36); Mean Corpuscular Hemoglobin 25.6 pg (26-34); Mean Corpuscular Volume 80.2 fl (80-100); Mean Platelet Volume 10.2 fl (7.4-10.4); Monocytes Absolute Auto 0.9 K/mm3 (0.1-0.6); Monocytes Percent Auto 7.3 % (2.6-8.5); Neutrophils Absolute Auto 9.7 K/mm3 (1.3-6.7); Platelet Count Result 514 k/mm3 (150-375); Red Blood Count 4.49 M/mm3 (4.2-5.4); Red Cell Distribution Width 14.5 % (11.5-14.5); White Blood Count 12.4 K/mm3 (4.5-10.0)
[2021-01-16 05:18] LABS: Anion Gap 5 mmol/L (8-16); Blood Urea Nitrogen 18 mg/dL (7-17); Calcium 8.7 mg/dL (8.4-10.2); Carbon Dioxide 30 mmol/L (22-30); Chloride 102 mmol/L (98-107); Estimated CRCL calculation 79 ml/min; Estimated Glomerular Filt Rate > 60; Glucose 298 mg/dL (65-110); Potassium 4.4 mmol/L (3.4-5.0); Sodium 137 mmol/L (137-145)
[2021-01-16] MEDS: ENOXAPARIN 40 MG/0.4 ML SYRINGE SUB-Q (08:43)
--- NOTE | 2021-01-16 16:47 | PM.IMPN ---
Progress Note: A&P Assessment and Plan (1) Suspected COVID-19 virus infection: Code(s): Z20.822 - Contact with and (suspected) exposure to COVID-19 Status: Acute Assessment and Plan: COVID-19 positive Currently receiving oxygen 5 liters per minute. Albuterol inhaler and oxygen supplementation as required. contact and droplet isolation. Decadron and remdesivir tocilizumab given 01/11/21 Continue supplemental oxygen as needed. Patient is a FULL CODE Blood cultures no growth to date. Supportive care PT/OT downgrade to medsurg in AM. (2) Hypertension: Code(s): I10 - Essential (primary) hypertension Status: Chronic Assessment and Plan: Current blood pressure improving to 106/81 Continue to hold BP meds while hypotensive Given acute illness target BP goal of 140/90 (3) Pneumonia: Qualifiers: Laterality: bilateral Lung location: lower lobe of lung Pneumonia type: due to unspecified organism Qualified Code(s): J18.9 - Pneumonia, unspecified organism Code(s): J18.9 - Pneumonia, unspecified organism Status: Acute Assessment and Plan: Community acquired pneumonia Azithromycin and Rocephin continued at this time. Acute respiratory failure requiring oxygen high flow, improving. (4) Acute hypokalemia: Code(s): E87.6 - Hypokalemia Status: Acute Assessment and Plan: Resolved with supplementation. K is 4.4. Additional Plan DVT prophylaxis Lovenox 40 mg SC daily. Subjective Date/time seen: 01/16/21 16:47 Interval history: This is a 65-year-old lady admitted with weakness, lethargy, excessive sleepiness who was diagnosed with COVID19 pneumonia on 01/10/2021. She was treated with remdesivir and decadron. She has been doing a lot better. Appetite is good and sleep is adequate. Oxygen requirements have improved significantly down to 5 liters per minute. Review of Systems Review of Systems: All systems reviewed & are unremarkable except as noted in HPI and below Constitutional: Constitutional: Reports as per HPI and Reports no additional constitutional complaints Eyes: Eyes: Reports as per HPI and Reports no additional eye complaints ENT: Reports system reviewed and no additional complaints, except as documented Cardiovascular: Cardiovascular: Reports no additional cardiovascular complaints Respiratory: Respiratory: Reports no additional respiratory complaints and Reports no additional respiratory complaints Gastrointestinal: Gastrointestinal: Reports as per HPI and Reports no additional gastrointestinal complaints Musculoskeletal: Musculoskeletal: Reports no additional musculoskeletal complaints Integumentary/Breasts: Skin/Breast: Reports system reviewed and no additional complaints, except as docu and Reports as per HPI Neurologic: Reports system reviewed and no additional complaints, except as documented and Reports as per HPI Psychiatric: Psychiatric: Reports no additional psychiatric complaints and Reports as per HPI Endocrine: Endocrine: Reports no additional endocrine complaints Hematologic/Lymphatic: Hematologic/Lymphatic: Reports no additional hematologic/lymphatic complaints Allergic/Immunologic: Allergic/Immunologic: Reports no additional allergic/immunologic complaints Exam Const: General: cooperative, comfortable, no acute distress, well developed and ill appearing Orientation/consciousness: oriented to person and oriented to place Other: She is awake, alert and eating with appetite. HENMT: Head: normal to inspection, No palpable skull fracture present, normocephalic and atraumatic Ears: external ears normal and hearing grossly impaired General nose exam: Normal external nose present and Normal nares present Eyes: General: appearance normal, both eyes and all related structures Alignment and Position: alignment normal Periorbital: periorbital findings normal Eyelids: eyelids normal Conjunctivae: conjunctivae
[2021-01-17] VITALS (9 sets, daily range): BP systolic 95–138; BP diastolic 56–87; PULSE 54–70; RESP 18–20; TEMP 36.2–36.9; O2SAT 93–99
[2021-01-17 07:01] LABS: Anion Gap 5 mmol/L (8-16); Blood Urea Nitrogen 19 mg/dL (7-17); Calcium 8.7 mg/dL (8.4-10.2); Carbon Dioxide 29 mmol/L (22-30); Chloride 102 mmol/L (98-107); Estimated CRCL calculation 93 ml/min; Estimated Glomerular Filt Rate > 60; Glucose 246 mg/dL (65-110); Potassium 4.5 mmol/L (3.4-5.0); Sodium 136 mmol/L (137-145)
[2021-01-17 08:50] LABS: Basophils Percent Auto 0.3 % (0.2-1.2); Eosinophils Absolute Auto 0.1 K/mm3 (0-0.3); Eosinophils Percent Auto 0.3 % (0-4.4); Hematocrit 40.3 % (37.0-47.0); Hemoglobin 12.9 g/dL (12.0-15.0); Immature Granulocyte Absolute 0.52 K/mm3 (0.00-0.031); Immature Granulocyte Percent A 3.6 % (0-0.5); Lymphocytes Absolute Auto 2.02 K/mm3 (0.9-3.2); Lymphocytes Percent Auto 13.9 % (18.3-44.2); Mean Corpuscular Hemoglobin 26.4 pg (26-34); Mean Corpuscular Volume 82.6 fl (80-100); Mean Platelet Volume 10.2 fl (7.4-10.4); Monocytes Absolute Auto 1.2 K/mm3 (0.1-0.6); Monocytes Percent Auto 8.3 % (2.6-8.5); Neutrophils Absolute Auto 10.7 K/mm3 (1.3-6.7); Neutrophils Percent Auto 73.6 % (45.5-73.1); Platelet Count Result 427 k/mm3 (150-375); Red Blood Count 4.88 M/mm3 (4.2-5.4); Red Cell Distribution Width 15.1 % (11.5-14.5); White Blood Count 14.6 K/mm3 (4.5-10.0)
[2021-01-17] MEDS: amLODIPine BESYLATE 5 MG TABLET 10 MG PO (10:00)
[2021-01-17] MEDS: ENOXAPARIN 40 MG/0.4 ML SYRINGE SUB-Q (10:01)
--- NOTE | 2021-01-17 15:31 | PM.IMPN ---
Progress Note: A&P Assessment and Plan (1) Suspected COVID-19 virus infection: Code(s): Z20.822 - Contact with and (suspected) exposure to COVID-19 Status: Acute Assessment and Plan: COVID-19 positive Currently receiving oxygen 4 liters per minute. Albuterol inhaler and oxygen supplementation as required. contact and droplet isolation. Decadron and remdesivir tocilizumab given 01/11/21 Continue supplemental oxygen as needed. Patient is a FULL CODE Blood cultures no growth to date. Supportive care PT/OT downgrade to medsurg in AM. (2) Hypertension: Code(s): I10 - Essential (primary) hypertension Status: Chronic Assessment and Plan: Current blood pressure improving to 115/66. Continue to hold BP meds while hypotensive Given acute illness target BP goal of 140/90 (3) Pneumonia: Qualifiers: Laterality: bilateral Lung location: lower lobe of lung Pneumonia type: due to unspecified organism Qualified Code(s): J18.9 - Pneumonia, unspecified organism Code(s): J18.9 - Pneumonia, unspecified organism Status: Acute Assessment and Plan: Community acquired pneumonia Azithromycin and Rocephin continued at this time. Acute respiratory failure requiring oxygen high flow, improving. (4) Acute hypokalemia: Code(s): E87.6 - Hypokalemia Status: Acute Assessment and Plan: Resolved with supplementation. K is 4.5. Additional Plan DVT prophylaxis Lovenox 40 mg SC daily. Subjective Date/time seen: 01/17/21 10:45 Interval history: This is a 65-year-old lady admitted with weakness, lethargy, excessive sleepiness who was diagnosed with COVID19 pneumonia on 01/10/2021. She was treated with remdesivir and decadron. She has been doing a lot better. Appetite is good and sleep is adequate. Oxygen requirements have improved significantly down to 4 liters per minute. S: Patient was examined at the bedside. She is in very good spirits. Review of Systems Review of Systems: All systems reviewed & are unremarkable except as noted in HPI and below Constitutional: Constitutional: Reports as per HPI and Reports no additional constitutional complaints Eyes: Eyes: Reports as per HPI and Reports no additional eye complaints ENT: Reports system reviewed and no additional complaints, except as documented Cardiovascular: Cardiovascular: Reports no additional cardiovascular complaints Respiratory: Respiratory: Reports no additional respiratory complaints and Reports no additional respiratory complaints Gastrointestinal: Gastrointestinal: Reports as per HPI and Reports no additional gastrointestinal complaints Musculoskeletal: Musculoskeletal: Reports no additional musculoskeletal complaints Integumentary/Breasts: Skin/Breast: Reports system reviewed and no additional complaints, except as docu and Reports as per HPI Neurologic: Reports system reviewed and no additional complaints, except as documented and Reports as per HPI Psychiatric: Psychiatric: Reports no additional psychiatric complaints and Reports as per HPI Endocrine: Endocrine: Reports no additional endocrine complaints Hematologic/Lymphatic: Hematologic/Lymphatic: Reports no additional hematologic/lymphatic complaints Allergic/Immunologic: Allergic/Immunologic: Reports no additional allergic/immunologic complaints Exam Const: General: cooperative, comfortable, no acute distress, well developed and ill appearing Orientation/consciousness: oriented to person and oriented to place Other: She is awake, alert and eating with appetite. HENMT: Head: normal to inspection, No palpable skull fracture present, normocephalic and atraumatic Ears: external ears normal and hearing grossly impaired General nose exam: Normal external nose present and Normal nares present Eyes: General: appearance normal, both eyes and all related structures Alignment and Position: alignment normal Periorbital: periorbital
[2021-01-18] VITALS (11 sets, daily range): BP systolic 93–119; BP diastolic 56–84; PULSE 57–96; RESP 18–20; TEMP 35.8–37.2; O2SAT 87–100
[2021-01-18 06:03] LABS: Basophils Percent Auto 0.3 % (0.2-1.2); Eosinophils Percent Auto 0.3 % (0-4.4); Hematocrit 38.3 % (37.0-47.0); Hemoglobin 12.2 g/dL (12.0-15.0); Immature Granulocyte Absolute 0.25 K/mm3 (0.00-0.031); Immature Granulocyte Percent A 2.1 % (0-0.5); Lymphocytes Absolute Auto 1.52 K/mm3 (0.9-3.2); Lymphocytes Percent Auto 13.1 % (18.3-44.2); Mean Corpuscular HGB Conc 31.9 g/dl (32-36); Mean Corpuscular Volume 81.5 fl (80-100); Mean Platelet Volume 9.8 fl (7.4-10.4); Monocytes Absolute Auto 0.9 K/mm3 (0.1-0.6); Monocytes Percent Auto 7.5 % (2.6-8.5); Neutrophils Absolute Auto 8.9 K/mm3 (1.3-6.7); Neutrophils Percent Auto 76.7 % (45.5-73.1); Platelet Count Result 507 k/mm3 (150-375); Red Cell Distribution Width 14.7 % (11.5-14.5); White Blood Count 11.6 K/mm3 (4.5-10.0)
[2021-01-18 06:11] LABS: Anion Gap 2 mmol/L (8-16); Blood Urea Nitrogen 17 mg/dL (7-17); Calcium 8.8 mg/dL (8.4-10.2); Carbon Dioxide 34 mmol/L (22-30); Chloride 101 mmol/L (98-107); Estimated CRCL calculation 69 ml/min; Estimated Glomerular Filt Rate > 60; Glucose 226 mg/dL (65-110); Potassium 4.5 mmol/L (3.4-5.0); Sodium 137 mmol/L (137-145)
[2021-01-18] MEDS: amLODIPine BESYLATE 5 MG TABLET 10 MG PO (08:40)
[2021-01-18] MEDS: ENOXAPARIN 40 MG/0.4 ML SYRINGE SUB-Q (08:41)
--- NOTE | 2021-01-18 09:59 | HOMEO2EVAL ---
Evaluation was performed at [facility] Home Oxygen Evaluation RC: Home Oxygen (O2) Evaluation Start: 01/18/21 07:17 Freq: ONCE Status: Active Protocol: RPE Activity Type Activity Date Activity User E-Sign Co-Sign Detail Recorded Client Recorded Date Recorded By Document 01/18/21 09:30 [email or web address] [email or web address] 01/18/21 09:59 DJO Document 01/18/21 09:31 [email or web address] [email or web address] 01/18/21 09:59 DJO Document 01/18/21 09:32 [email or web address] [email or web address] 01/18/21 09:59 DJO Document 01/18/21 09:35 [email or web address] [email or web address] 01/18/21 09:59 DJO Document 01/18/21 09:45 [email or web address] [email or web address] 01/18/21 09:59 DJO 01/18/21 01/18/21 01/18/21 09:30 09:31 09:32 Home O2 Evaluation Test Phase Resting Resting Resting Oxygen Delivery Room Air Nasal Cannula Nasal Cannula Oxygen Flow Rate (L/min) 1 2 Pulse Oximetry (90-100 %) 87 L 87 L 93 Pulse Rate (60-100 beats/min) 86 Ambulation Distance (feet) Home Oxygen Evaluation Comments Treatment Charges O2 Evaluation - Inpatient 01/18/21 01/18/21 09:35 09:45 Home O2 Evaluation Test Phase Exercise Resting Oxygen Delivery Nasal Cannula Nasal Cannula Oxygen Flow Rate (L/min) 2 2 Pulse Oximetry (90-100 %) 89 L 95 Pulse Rate (60-100 beats/min) 96 Ambulation Distance (feet) 50 Home Oxygen Evaluation Comments WALKED TO DOOR AND BACK X 2 REQUIRES 2 L AT REST AND WITH EXERTION Treatment Charges
--- NOTE | 2021-01-18 11:04 | PCNWS ---
Weekly nutritional screen. Patient is tolerating current diet with adequate intake. No weight loss reported. No nutritional needs at this time.
--- NOTE | 2021-01-18 11:11 | PCRCNOTE ---
HOME O2 EVAL COMPLETED. WILL ARRANGE FOR PT TO BE SET UP WITH HOME O2. WILL BRING TRANSPORT TANK TO ROOM PRIOR TO D/C FOR PT. SET UP WITH [facility]. PHONE # [phone]
--- NOTE | 2021-01-18 16:03 | PM.IMPN ---
Progress Note: A&P Assessment and Plan (1) Suspected COVID-19 virus infection: Code(s): Z20.822 - Contact with and (suspected) exposure to COVID-19 Status: Acute Assessment and Plan: COVID-19 positive Currently receiving oxygen 2 liters per minute. Albuterol inhaler and oxygen supplementation as required. contact and droplet isolation. Decadron and remdesivir tocilizumab given 01/11/21 Continue supplemental oxygen as needed. Patient is a FULL CODE Blood cultures no growth to date. Supportive care PT/OT Home O2 evaluation Discharge home tomorrow. (2) Hypertension: Code(s): I10 - Essential (primary) hypertension Status: Chronic Assessment and Plan: Current blood pressure improving to 93/56. Continue to hold BP meds while hypotensive Given acute illness target BP goal of 140/90 (3) Pneumonia: Qualifiers: Laterality: bilateral Lung location: lower lobe of lung Pneumonia type: due to unspecified organism Qualified Code(s): J18.9 - Pneumonia, unspecified organism Code(s): J18.9 - Pneumonia, unspecified organism Status: Acute Assessment and Plan: Community acquired pneumonia Azithromycin and Rocephin continued at this time. Acute respiratory failure requiring oxygen high flow, improving. (4) Acute hypokalemia: Code(s): E87.6 - Hypokalemia Status: Acute Assessment and Plan: Resolved with supplementation. Additional Plan DVT prophylaxis Lovenox 40 mg SC daily. Subjective Date/time seen: 01/18/21 13:00 Interval history: This is a 65-year-old lady admitted with weakness, lethargy, excessive sleepiness who was diagnosed with COVID19 pneumonia on 01/10/2021. She was treated with remdesivir and decadron. She has been doing a lot better. Appetite is good and sleep is adequate. Oxygen requirements have improved significantly down to 2 liters per minute. S: Patient was examined at the bedside. She is in very good spirits. There is no active complaint. Review of Systems Review of Systems: All systems reviewed & are unremarkable except as noted in HPI and below Constitutional: Constitutional: Reports as per HPI and Reports no additional constitutional complaints Eyes: Eyes: Reports as per HPI and Reports no additional eye complaints ENT: Reports system reviewed and no additional complaints, except as documented Cardiovascular: Cardiovascular: Reports no additional cardiovascular complaints Respiratory: Respiratory: Reports no additional respiratory complaints and Reports no additional respiratory complaints Gastrointestinal: Gastrointestinal: Reports as per HPI and Reports no additional gastrointestinal complaints Musculoskeletal: Musculoskeletal: Reports no additional musculoskeletal complaints Integumentary/Breasts: Skin/Breast: Reports system reviewed and no additional complaints, except as docu and Reports as per HPI Neurologic: Reports system reviewed and no additional complaints, except as documented and Reports as per HPI Psychiatric: Psychiatric: Reports no additional psychiatric complaints and Reports as per HPI Endocrine: Endocrine: Reports no additional endocrine complaints Hematologic/Lymphatic: Hematologic/Lymphatic: Reports no additional hematologic/lymphatic complaints Allergic/Immunologic: Allergic/Immunologic: Reports no additional allergic/immunologic complaints Exam Const: General: cooperative, comfortable, no acute distress, well developed and ill appearing Orientation/consciousness: oriented to person and oriented to place Other: She is awake, alert and eating with appetite. HENMT: Head: normal to inspection, No palpable skull fracture present, normocephalic and atraumatic Ears: external ears normal and hearing grossly impaired General nose exam: Normal external nose present and Normal nares present Eyes: General: appearance normal, both eyes and all related structures Alignment and Position: alignme
[2021-01-19] VITALS: BP 110/63; PULSE 52; RESP 16; TEMP 36.7; O2SAT 100
[2021-01-19 04:00] VITALS: BP 118/74; PULSE 53; RESP 18; TEMP 36.3; O2SAT 100
[2021-01-19 06:16] LABS: Basophils Absolute Auto 0.1 K/mm3 (0.0-0.1); Basophils Percent Auto 0.4 % (0.2-1.2); Eosinophils Absolute Auto 0.1 K/mm3 (0-0.3); Eosinophils Percent Auto 0.6 % (0-4.4); Hematocrit 42.5 % (37.0-47.0); Hemoglobin 12.6 g/dL (12.0-15.0); Immature Granulocyte Absolute 0.18 K/mm3 (0.00-0.031); Immature Granulocyte Percent A 1.6 % (0-0.5); Lymphocytes Absolute Auto 1.88 K/mm3 (0.9-3.2); Lymphocytes Percent Auto 16.4 % (18.3-44.2); Mean Corpuscular HGB Conc 29.6 g/dl (32-36); Mean Corpuscular Hemoglobin 25.7 pg (26-34); Mean Corpuscular Volume 86.6 fl (80-100); Mean Platelet Volume 9.7 fl (7.4-10.4); Monocytes Absolute Auto 0.9 K/mm3 (0.1-0.6); Monocytes Percent Auto 7.9 % (2.6-8.5); Neutrophils Absolute Auto 8.4 K/mm3 (1.3-6.7); Neutrophils Percent Auto 73.1 % (45.5-73.1); Platelet Count Result 478 k/mm3 (150-375); Red Blood Count 4.91 M/mm3 (4.2-5.4); Red Cell Distribution Width 15.5 % (11.5-14.5); White Blood Count 11.5 K/mm3 (4.5-10.0)
[2021-01-19 06:33] LABS: Anion Gap 7 mmol/L (8-16); Blood Urea Nitrogen 18 mg/dL (7-17); Calcium 8.9 mg/dL (8.4-10.2); Carbon Dioxide 29 mmol/L (22-30); Chloride 101 mmol/L (98-107); Estimated CRCL calculation 79 ml/min; Estimated Glomerular Filt Rate > 60; Glucose 184 mg/dL (65-110); Potassium 4.5 mmol/L (3.4-5.0); Sodium 137 mmol/L (137-145)
[2021-01-19 07:10] LABS: Acanthocytes 1+ (NORMAL); Atypical Lymphocytes Present; Hypochromasia 1+ (NORMAL); Platelet Estimate Adequate (Adequate); Schistocytes 1+ (NORMAL)
[2021-01-19 08:00] VITALS: BP 103/63; PULSE 57; RESP 16; TEMP 36.3; O2SAT 98
[2021-01-19] MEDS: amLODIPine BESYLATE 5 MG TABLET 10 MG PO (09:29)
[2021-01-19] MEDS: ENOXAPARIN 40 MG/0.4 ML SYRINGE SUB-Q (09:29)
[2021-01-19 12:00] VITALS: BP 98/48; PULSE 65; RESP 16; TEMP 37.1; O2SAT 99
--- NOTE | 2021-01-19 15:08 | PC.NURSE ---
PATIENT DISCHARGE INSTRUCTIONS REVIEWED VIA PHONE WITH SISTER LORENE
--- NOTE | 2021-01-19 15:43 | PM.DS ---
DS: Admitting Diagnosis Discharge Date 01/19/2021. Admitting Diagnosis COVID19 pneumonia DS: Discharge Diagnosis Discharge Diagnosis (1) Suspected COVID-19 virus infection: Code(s): Z20.822 - Contact with and (suspected) exposure to COVID-19 Status: Acute Assessment and Plan: COVID-19 positive At the time of discharge, she was requiring oxygen 2 liters per minute. Albuterol inhaler and oxygen supplementation as required. contact and droplet isolation. She was treated with decadron, remdesivir, tocilizumab(01/11/21) Blood cultures no growth to date. She benefited from PT and OT and will have home therapy as an outpatient. Patient is being discharged home. (2) Hypertension: Code(s): I10 - Essential (primary) hypertension Status: Chronic Assessment and Plan: Current blood pressure improving to 98/48 Continue to hold BP meds while hypotensive at the time of discharge. (3) Pneumonia: Qualifiers: Laterality: bilateral Lung location: lower lobe of lung Pneumonia type: due to unspecified organism Qualified Code(s): J18.9 - Pneumonia, unspecified organism Code(s): J18.9 - Pneumonia, unspecified organism Status: Acute Assessment and Plan: Community acquired pneumonia She was treated with azithromycin and Rocephin . (4) Acute hypokalemia: Code(s): E87.6 - Hypokalemia Status: Acute Assessment and Plan: Resolved with supplementation. DS: Summary Hospital Course Reason for hospitalization: shortness of breath Hospital Course: This is a 65-year-old lady admitted with weakness, lethargy, excessive sleepiness who was diagnosed with COVID19 pneumonia on 01/10/2021. She was treated with remdesivir, decadron and tocilizumab. She has never been critical. Her oxygen requirements have improved progressively from 50 liters down to 2 liters on 01/17/2021. She is doing a lot better. Appetite is good and sleep is adequate. Oxygen requirements have improved significantly down to 2 liters per minute. ON 01/19/2021, the patient was examined at the bedside. She is in very good spirits. There is no active complaint. She is discharged home with oxygen. She will receive home health services from [place]. Status at Discharge Functional status at discharge: independent ambulation Overall status at discharge: patient is progressing back to baseline Time Spent with Patient Time attestation: Total time spent providing and/or coordinating discharge services: Time spent: Greater than 30 minutes Exam Const: General: cooperative, comfortable, no acute distress, well developed and ill appearing Orientation/consciousness: oriented to person and oriented to place Other: She is awake, alert and eating with appetite. HENMT: Head: normal to inspection, No palpable skull fracture present, normocephalic and atraumatic Ears: external ears normal and hearing grossly impaired General nose exam: Normal external nose present and Normal nares present Eyes: General: appearance normal, both eyes and all related structures Alignment and Position: alignment normal Periorbital: periorbital findings normal Eyelids: eyelids normal Conjunctivae: conjunctivae normal Sclera: sclerae normal Cornea: corneas normal Pupils: Equal, round and reactive pupils present EOM: EOMs intact bilaterally Neck: Neck: normal visual inspection, full ROM and supple Chest: Chest palpation & inspection: normal inspection of the chest Resp: Effort & Inspection: normal respiratory effort Auscultation: diminished lung sounds Percussion: percussion normal Cardio: Palpation: normal PMI Rate: regular rate Rhythm: regular rhythm Heart sounds: S1 normal heart sound present and S2 normal heart sound present Peripheral pulses: Peripheral pulses 2+ throughout GI: Inspection: normal to inspection Auscultation: normal bowel sounds Rectal Exam: deferred Skin: General skin exam: normal color Lesions: no lesions
== END 2021-01-19 15:30 | disposition home health service (06) | DRG 177 ==
LOC: ANHED 10:59 → ANH3MEDSUR 15:11 → ANHIMU 01-11 01:02 → ANH3MEDSUR 01-17 15:08 → ANHIMU 01-23 15:39
PROVIDERS: Nurse Practitioner; Admitting Provider Internal Medicine; Emergency Provider Emergency Medicine; PCP Family Medicine Adolescent Medicine; Visit Provider Internal Medicine
DX: U07.1 COVID-19 (principal); J12.82 Pneumonia due to coronavirus disease 2019; Z66 Do not resuscitate; E87.6 Hypokalemia; I10 Essential (primary) hypertension; Z87.891 Personal history of nicotine dependence; Z79.899 Other long term (current) drug therapy
CPT/HCPCS: 36415; 36600; 51701; 71046; 71275; 80048; 80053; 81001; 82375; 82565; 82728; 82805; 83050; 83605; 83615; 83735; 84132; 84443; 84460; 84484; 85025; 85380; 85610; 85730; 86140; 87040; 93005; 94618; 96365; 96366; 96367; 96368; 96372; 96375; 97110; 97116; 97162; 97165; 97530; 97535; 99285; A9270; C9803; G0378; J0456; J0696; J1100; J1650; J3262; J3480; Q9967; U0003; U0005

== ENCOUNTER 2021-03-02 10:12 | Outpatient (CLI) | payer OTHER, SELFPAY | END 2021-03-02 10:13 | disposition home or self-care (01) | PROVIDERS: PCP Family Medicine Adolescent Medicine; Visit Provider Physician Assistant | DX: H91.93 Unspecified hearing loss, bilateral (principal) | CPT/HCPCS: 92557; 92567 ==

== ENCOUNTER 2021-06-25 11:00 | Outpatient (RCR) | payer OTHER, SELFPAY | END 2021-06-25 23:59 | disposition home or self-care (01) | LOC: ANHAUDIO 11:00 | PROVIDERS: PCP Family Medicine Adolescent Medicine; Visit Provider Family Medicine Adolescent Medicine | DX: Z46.1 Encounter for fitting and adjustment of hearing aid (principal) | CPT/HCPCS: 99199; V5261; V5264 ==

== ENCOUNTER 2021-09-17 07:43 | Outpatient (CLI) | payer OTHER, SELFPAY ==
--- NOTE | ~2021-09-17 | MM_ITS ---
EXAMINATION: MM screening [facility] BI w hemant HISTORY: Screening mammogram TECHNIQUE: Craniocaudal and mediolateral oblique 3-D tomosynthesis images were obtained and synthetic 2-D images were generated. CAD analysis was submitted and interpreted. COMPARISON: 08/14/2020 diagnostic right mammogram and limited right breast ultrasound 3. Sites , 07/12/2019, 07/06/2018 bilateral screening mammogram examinations BREAST PARENCHYMAL COMPOSITION: The breasts are heterogeneously dense, which may obscure small masses . FINDINGS: There is no evidence of suspicious mass, calcification, or architectural distortion to sugg est malignancy in either breast. There has been no suspicious interval change. IMPRESSION: 1. No mammographic evidence of malignancy. 2. Recommend routine screening mammography in one year. BI-RADS Category 1: Negative Reviewed, dictated and finalized at location A.
== END 2021-09-17 07:44 | disposition home or self-care (01) ==
LOC: ANHIMG 07:46
PROVIDERS: PCP Internal Medicine; Visit Provider Internal Medicine
DX: Z12.31 Encounter for screening mammogram for malignant neoplasm of breast (principal)
CPT/HCPCS: 77063; 77067

== ENCOUNTER 2021-09-17 14:38 | Outpatient (RCR) | payer OTHER, SELFPAY | END 2021-09-17 23:59 | disposition home or self-care (01) | LOC: ANHAUDIO 14:38 | PROVIDERS: PCP Internal Medicine; Visit Provider Family Medicine Adolescent Medicine | DX: Z46.1 Encounter for fitting and adjustment of hearing aid (principal) | CPT/HCPCS: 99199 ==

== ENCOUNTER 2022-04-15 09:48 | Outpatient (CLI) | payer OTHER, SELFPAY ==
--- NOTE | ~2022-04-15 | XR_ITS ---
Clinical Indication: Weight loss PA and lateral views of the chest: Comparison: 01/10/2021 Findings: The lungs are clear, without evidence of focal consolidation or pleural effusion. Cardiome diastinal silhouette is within normal limits. Bones and soft tissues are unremarkable. Impression: Normal chest. Reviewed, dictated and finalized at location [] TIER Impression: Normal chest.
== END 2022-04-15 09:49 | disposition home or self-care (01) ==
PROVIDERS: PCP Internal Medicine; Visit Provider Internal Medicine
DX: R63.4 Abnormal weight loss (principal)
CPT/HCPCS: 71046

== ENCOUNTER 2022-12-02 08:55 | Outpatient (CLI) | payer OTHER, SELFPAY ==
--- NOTE | ~2022-12-02 | MM_ITS ---
EXAMINATION: MM screening [facility] BI w hemant HISTORY: Screening mammogram TECHNIQUE: Craniocaudal and mediolateral oblique 3-D tomosynthesis images were obtained and synthetic 2-D images were generated. CAD analysis was submitted and interpreted. COMPARISON: 09/17/2021, 08/14/2020, 07/11/2020 BREAST PARENCHYMAL COMPOSITION: The breasts are heterogeneously dense, which may obscure small masses . FINDINGS: No suspicious mass, calcification, or architectural distortion are identified in either kelsie ast to suggest malignancy. There has been no suspicious interval change. IMPRESSION: 1. No mammographic evidence of malignancy. 2. Recommend routine screening mammography in one year. BI-RADS Category 1: Negative Reviewed, dictated and finalized at location A.
== END 2022-12-02 08:56 | disposition home or self-care (01) ==
LOC: ANHIMG 08:58
PROVIDERS: PCP Internal Medicine; Visit Provider Internal Medicine
DX: Z12.31 Encounter for screening mammogram for malignant neoplasm of breast (principal)
CPT/HCPCS: 77063; 77067

== ENCOUNTER 2023-07-25 13:58 | Outpatient (RCR) | payer OTHER, SELFPAY | END 2023-07-25 23:59 | disposition home or self-care (01) | LOC: ANHAUDIO 13:58 | PROVIDERS: PCP Internal Medicine | DX: Z46.1 Encounter for fitting and adjustment of hearing aid (principal) | CPT/HCPCS: V5014; V5267 ==

== ENCOUNTER 2023-12-22 08:38 | Outpatient (CLI) | payer OTHER, SELFPAY ==
--- NOTE | ~2023-12-22 | MM_ITS ---
EXAMINATION: MM screening [facility] BI w hemant HISTORY: Screening TECHNIQUE: Craniocaudal and mediolateral oblique 3-D tomosynthesis images were obtained and synthetic 2-D images were generated. CAD analysis was submitted and interpreted. COMPARISON: Comparison to multiple prior studies sequentially, with oldest reviewed study dated 07/06. BREAST PARENCHYMAL COMPOSITION: Dense: The breasts are heterogeneously dense, which may obscure small masses FINDINGS: There are developing nodular asymmetries in both breasts. There are no suspicious calcifica tions. No discrete architectural distortion. IMPRESSION: 1. Developing nodular asymmetries in both breasts. 2. Additional mammographic views and possible breast ultrasound are recommended. BI-RADS Category 0: Incomplete: Needs additional imaging evaluation. Reviewed, dictated and finalized at location B. IMPRESSION: 1. Developing nodular asymmetries in both breasts. 2. Additional mammographic views and possible breast ultrasound are recommended . BI-RADS Category 0: Incomplete: Needs additional imaging evaluation.
== END 2023-12-22 08:39 | disposition home or self-care (01) ==
LOC: ANHIMG 08:39
PROVIDERS: PCP Internal Medicine; Visit Provider Internal Medicine
DX: Z12.31 Encounter for screening mammogram for malignant neoplasm of breast (principal); R92.8 Other abnormal and inconclusive findings on diagnostic imaging of breast
CPT/HCPCS: 77063; 77067

== ENCOUNTER 2024-01-20 09:38 | Outpatient (CLI) | payer OTHER, SELFPAY ==
--- NOTE | ~2024-01-20 | MMUS_ITS ---
EXAMINATION: MM diagnostic [facility] BI w hemant, US breast BI complete HISTORY: Follow-up breast asymmetries TECHNIQUE: Additional 3-D tomosynthesis images of the breasts were performed and synthetic 2-D images were generated. CAD analysis was submitted and interpreted. High resolution bilateral complete breas t ultrasound was performed. COMPARISON: Comparison to multiple prior studies sequentially, with oldest reviewed study dated 07/11. BREAST PARENCHYMAL COMPOSITION: Dense: The breasts are heterogeneously dense, which may obscure small masses FINDINGS: MAMMOGRAPHIC FINDINGS: The right breast asymmetries compress with spot views without discrete mass, architectural distortion or suspicious calcifications. There are persistent asymmetries in the upper aspect of the left breas t, although no discrete mass or architectural distortion is seen. ULTRASOUND: Complete US of all 4 quadrants of the breast/s and retroareolar region was reviewed. Right breast: Normal heterogeneous echotexture without focal solid or cystic mass. Left breast: At 12:00, 2 cm from the nipple there is an oval parallel oriented hypoechoic mass with l ow level internal echoes measuring 11 x 9 x 6 mm. The margins are circumscribed. No significant poste rior features or internal vascularity. At 4:00 near the nipple there is an oval hypoechoic mass with what appears to be an echogenic hilum, now significant posterior features, most likely an intramammar y lymph node. IMPRESSION: 1. Probable benign left breast masses. 2. Recommend 6 month follow-up Limited left breast ultrasound and diagnostic left mammogram. BI-RADS category 3, probably benign findings. Reviewed, dictated and finalized at location B. IMPRESSION: 1. Probable benign left breast masses. 2. Recommend 6 month follow-up Limited left breast ultrasound and diagnostic le ft mammogram. BI-RADS category 3, probably benign findings.
== END 2024-01-20 09:39 | disposition home or self-care (01) ==
LOC: ANHIMG 09:39
PROVIDERS: PCP Internal Medicine; Visit Provider Internal Medicine
DX: R92.8 Other abnormal and inconclusive findings on diagnostic imaging of breast (principal)
CPT/HCPCS: 76641; 77062; 77066; G0279

== ENCOUNTER 2024-09-13 09:34 | Emergency (ER) | payer OTHER, SELFPAY ==
[2024-09-13 09:38] VITALS: BP 175/89; PULSE 81; RESP 20; TEMP 36.3; O2SAT 99
--- NOTE | 2024-09-13 10:01 | ED.GENADULT ---
HPI - General Adult General Stated complaint: Blood Pressure Time Seen by Provider: 09/13/24 09:55 Source: patient and RN notes reviewed Mode of arrival: ambulatory Limitations: no limitations History of Present Illness HPI narrative: 69-year-old female presents to [facility] Care daughter complain of medication refill. Patient said she ran out of her amlodipine approximately 1 week ago. [facility] and she has a scheduled appointment for October 11 for a new provider. Patient has a history of hypertension normally takes amlodipine. Patient is hypertensive today. Patient denies any headaches, blurry vision, vision changes, chest pain, shortness of breath, or any other symptoms. Related Data Allergies Allergy/AdvReac Type Severity Reaction Status Date / Time No Known Allergies Allergy Verified 01/10/21 09:06 Review of Systems Review of Systems: CONSTITUTIONAL: Denies fever, chills, or sweats. EYES: Denies visual changes, redness, or discharge. ENT: Denies rhinorrhea, congestion, sore throat, or otalgia. CARDIOVASCULAR: Denies chest pain, palpitations, or edema. RESPIRATORY: Denies cough or dyspnea. GASTROINTESTINAL: Denies abdominal pain, nausea, vomiting, or diarrhea. GENITOURINARY: Denies dysuria or hematuria. SKIN: Denies rash or itching. MUSCULOSKELETAL: Denies back pain, joint pain, or myalgia. NEUROLOGIC: Denies headache, numbness, slurred speech, facial droop, or weakness. PSYCHIATRIC: Denies anxiety or depression. All other systems reviewed are negative, except as documented in HPI. [facility] Past Medical History Medical History Hypertension Surgical History Surgical History No pertinent past surgical history Family History Family History Father Leukemia Mother Heart disease Social History Social History Social History: The patient lives with her son and she states the son is a durable power regulatory attorney for healthcare. The patient is listed as a DNR. She has 2 children. She currently works at [employer]. She is a former smoker. She said she used to drink alcohol but she does not anymore. She is listed as single. Smoking packs per day: 2 Smoking cigarettes per day: 40.0 Years smoked: 20 Smoking pack-years: 40.00 Smoking status: Former smoker Tobacco type: cigarettes Alcohol intake: never Substance use: never Spiritual care concerns: No Comments At the time of my signature, I reviewed and agree with the nursing past medical, surgical, social, and family history. There is no relevant family history pertinent to the patient complaint. Exam Narrative: GENERAL: This is a well-nourished, well-developed adult, in no apparent distress. They are non ill-appearing, nontoxic appearing. HEAD: normocephalic, atraumatic. EYES: Sclera clear/white. Conjunctiva normal. Vision is grossly intact. Extraocular movements intact. Pupils PERRLA EARS: External ears normal,Hearing grossly intact. NOSE: External nose normal THROAT: Mucous membranes moist NECK: Neck supple, non-tender without lymphadenopathy, masses or thyromegaly. CARDIOVASCULAR: Regular rate and rhythm without murmurs, gallops, or rubs. RESPIRATORY: Clear to auscultation. Breath sounds equal bilaterally. No wheezes, rales, or rhonchi. SKIN: warm, Dry, intact with no suspicious lesions or rash, good texture and turgor. NEURO: awake, alert, and oriented to person, place and time. There were no obvious focal neurologic abnormalities. EXTREMITIES: No joint tenderness, effusion, or edema noted. BACK: Nontender without deformity. Course Course Emergency Course: Portions of this record may have been created with voice recognition software Level of Care: Express Care Visit Vital Signs Vital signs: Vital Signs Temperature 97.4 F L 09/13/24 09:38 Pulse Rate 81 09/13/24 09:38 Respiratory Rate 20 09/13/24 09:38 Blood Pressure 175/89 H 09/13/24 09:38 Pulse Oximetry 99 09/13/24 09:38 Oxygen Delivery Room Air 09/13/24 09:38 Temperature 97.4 F L 09/13/24 09:38 Pulse Rate 81 09/13/24 09:38 Respiratory Rate 20 09/13/24 09:38 Blood Pressure 175/89 H 09/13/24 09:38 Pulse Oximetry 99 09/13/24 09:38 Oxygen Delivery Room Air 09/13/24 09:38 Reviewed Medical Decision Making MDM Narrative Medical decision making narrative: Patient is asymptomatic with her hypertension. Will refill patient's prescription for amlodipine 10 mg daily for a month supply which she keep her covered until her next appointment with her PCP in September. Patient has the medication bottle with her today of her previous prescription. Advised patient to keep follow-up with primary care provider. Discussed physical exam findings. Advised supportive measures and signs/symptoms to go to the ER. Pt is appropriate for outpt treatment and f/u. Differential Diagnosis Differential Diagnosis: Hypertension, hypertensive urgency, hypertensive crisis Vital Signs Vital Signs: Vital Signs Temperature 97.4 F L 09/13/24 09:38 Pulse Rate 81 09/13/24 09:38 Respiratory Rate 20 09/13/24 09:38 Blood Pressure 175/89 H 09/13/24 09:38 Pulse Oximetry 99 09/13/24 09:38 Oxygen Delivery Room Air 09/13/24 09:38 Temperature 97.4 F L 09/13/24 09:38 Pulse Rate 81 09/13/24 09:38 Respiratory Rate 20 09/13/24 09:38 Blood Pressure 175/89 H 09/13/24 09:38 Pulse Oximetry 99 09/13/24 09:38 Oxygen Delivery Room Air 09/13/24 09:38 Critical Care Time Critical Care Time Critical Care Time: No Discharge Plan Discharge Clinical Impression: Medication refill Hypertension Qualifiers: Hypertension type: unspecified Qualified Code(s): I10 - Essential (primary) hypertension Patient Disposition: Home Condition: Stable Instructions: Hypertension (ED) Additional Instructions: I have refilled her prescription for amlodipine. Take amlodipine as directed. Please keep your scheduled appointment with her primary care provider so they can further manage your blood pressure. If her blood pressures goes over 200 systolic over 100 diastolic, he developed headaches, chest pain, vision changes, or any other concerns please go to the ER immediately. Patient Language: Lithuanian Prescriptions: New amlodipine 10 mg tablet 10 mg PO DAILY Qty: 30 0RF No Action albuterol sulfate 90 mcg/actuation aerosol powdr breath activated 2 inh inhalation Q3-4H PRN (Reason: Shortness Of Breath) 30 Days Qty: 1 0RF azithromycin 250 mg tablet See Rx Instructions .ROUTE .COMPLEX Qty: 6 0RF Rx Instructions: take 500 mg today (day 1), then 250 mg for 4 days (days 2-5) amlodipine 10 mg tablet See Rx Instructions .ROUTE .COMPLEX Qty: 90 1RF Dose Instruction: Take 1 tablet by mouth once daily Rx Instructions: Take 1 tablet by mouth once daily Follow-up/Referrals: Trudi William [facility] [Primary Care Provider] - Time of Disposition: 10:00
== END 2024-09-13 10:36 | disposition home or self-care (01) ==
PROVIDERS: PCP Nurse Practitioner
DX: Z76.0 Encounter for issue of repeat prescription (principal); I10 Essential (primary) hypertension; Z87.891 Personal history of nicotine dependence
CPT/HCPCS: 99211; G0463

== ENCOUNTER 2025-02-08 13:27 | Outpatient (RCR) | payer SELFPAY | END 2025-02-08 23:59 | disposition home or self-care (01) | LOC: ANHAUDIO 13:27 | PROVIDERS: PCP Family Medicine; Visit Provider Family Medicine | DX: Z46.1 Encounter for fitting and adjustment of hearing aid (principal) | CPT/HCPCS: 92593 ==